=== PATIENT | female | born 1980 | race Caucasian/White ===

== ENCOUNTER 2017-01-12 19:49 | Emergency (ER) | payer MEDICAID ==
[~2017-01-12] VITALS: Ht 162.6 cm; Wt 107.0 kg
[~2017-01-12 19:49] MED LIST: ACET-62 PO; BUSP7.5T7 PO; GLYB1.253 PO; HYDR25TA85 PO; IBUP-1724 PO; LIRA0.6P SQ; LISI1TAB13 PO; TRAM50TA4 PO
[2017-01-12 19:52] VITALS: Ht 162.6 cm; Wt 107.0 kg
--- OUTSIDE RECORDS SUMMARY | 2017-01-12 19:53 | XMS REPORT ---
Author Author [employer], [facility] Organization Unknown Address Unknown Phone Unavailable Care Team Providers Care Workforce Consultant Name Role Phone MD JOSHUA, MERNA PP [phone] Reason For Visit Chief Complaint TOOTHACHE Social History Functional Status Vital Signs Results Problems Encounter Diagnosis No relevant problems exist. Encounters Encounter Diagnosis No relevant problems exist. Plan of Care Procedures No relevant procedures performed. Immunizations No immunizations administered or ordered. Hospital Course Hospital Discharge Instructions Allergies, Adverse Reactions, Alerts * Latex Allergy has not been assessed. * IV Contrast Allergy has not been assessed. Medication Medication reconciliation has not been performed.
--- OUTSIDE RECORDS SUMMARY | 2017-01-12 19:53 | XMS REPORT | Continuity of Care Document ---
Author Author [facility] Organization [facility] Address Unknown Phone Unavailable Support Name Relationship Address Phone EUSEBIA FARMER APRN Caregiver [address] [place] [id number] Unavailable JOSE ANAYA MD Caregiver [address] [place] [address] [place] [address] Unavailable KIERSTEN SALAS Next Of Kin [address] [place] [address] Insurance Providers Guarantor Bertin Salas Address [address] [place], [place] [id number] Email DENIED/NO PORTAL Payer [facility] Community Plan Policy Number [id number] Subscriber's Name Bertin Salas Relationship 18 Self Effective Date 16 Expiration Date 16 Advance Directives Directive Response Recorded Date/Time Advanced Directives Type None 09/03/16 12:59pm Chief Complaint and Reason for Visit Chief Complaint Upper Extremity Injury Reason for Visit [id number] Problems Past Problems Medical Problem Onset Date Back contusion Unknown Fall (on) (from) other stairs and steps, initial encounter Unknown Fracture of multiple toes Unknown Sprain of wrist, right Unknown Medications Current Home Medications Medication Dose Units Route Directions Days Qty Instructions Start Date Acetaminophen 500 Mg Tablet 1,000 Mg Oral Every 8 Hours as needed for Pain 09/03/16 Buspirone Hcl 7.5 Mg Tablet 7.5 Mg Oral Daily 09/03/16 Glyburide 1.25 Mg Tablet 1.25 Mg Oral Daily 09/03/16 Hydroxyzine Hcl 25 Mg Tablet 25 Mg Oral Three Times A Day as needed for Anxiety 09/03/16 Ibuprofen 200 Mg Tablet 800 Mg Oral Every 8 Hours as needed for Pain 04/16/16 Liraglutide (Victoza 2-Toñito) 18 Mg/Syringe Inj 1.2 Mg Sub-Q Daily 09/03/16 Lisinopril/Hydrochlorothiazide (Lisinopril-Hctz 20-25 Mg Tab) 1 Each Tablet 1 Tab Oral Daily 09/03/16 Tramadol Hcl 50 Mg Tablet 50 Mg Oral Q6h/0300,0900,1500,2100 8 Tablet Take 1 tablet, by mouth, every 6 hours. 09/03/16 Social History Social History Problem Response Recorded Date/Time Onset Date Status Hx Alcohol Use No 09/03/2016 1:37pm Not Applicable Not Applicable Query Response Start Date Stop Date Smoking Status Current every day smoker Hospital Discharge Instructions No hospital discharge instructions. Plan of Care Discharge Date 09/03/16 2:03pm Disposition 01 DISCHARGED HOME, SELF-CARE Condition at Discharge Stable Instructions/Education Provided DI for Wrist Sprain Prescriptions See Medication Section Referrals EUSEBIA FARMER APRN Address: [address] [place] [address] [phone] Additional Instructions/Education Continue to ice and elevate the wrist as well as use Ibuprofen and/or Tylenol as needed for pain. May wear the wrist splint as needed for comfort, remove and use the wrist once able. If not improving at all then follow up with PCP in the next 2 weeks. Care Plan and Goals Physician Care Plan Problem:Right wrist pain Goal: Follow up with primary care provider Instructions: Take medications and follow care plan as discussed/written Functional Status No functional status results. Allergies, Adverse Reactions, Alerts Allergen Type Severity Reaction Status Last Updated NKDA Allergy Mild Active 09/03/16 Immunizations Query Response on File Recorded Date/Time Influenza Vaccine Hx NONE 09/03/16 1:37pm Vital Signs Acute Vital Signs Vital Response Date/Time Temperature (Fahrenheit) 98.4 deg F (96.8 - 99.1) 09/03/2016 2:03pm Temperature (Calculated Celsius) 36.21468 degrees C (36.0 - 37.3) 09/03/2016 2:03pm Pulse Rate (adult) 86 bpm (60 - 100) 09/03/2016 2:03pm Respiratory Rate 20 breaths/min (10 - 20) 09/03/2016 2:03pm O2 Sat by Pulse Oximetry 95 % (90 - 100) 09/03/2016 2:03pm Blood Pressure 132/63 mm Hg 09/03/2016 2:03pm Height (Feet) 5 feet 09/03/2016 12:59pm Height (Inches) 4.00 inches 09/03/2016 12:59pm Weight (Kilograms) 114.000 kg 09/03/2016 12:59pm Body Mass Index (BMI) 43.0 09/03/2016 12:59pm Results Name: BERTIN SALAS Unit #: [id number] : 1980 Sex: F Admit Date: Loc / Svc: ED Discharge Date: DIAGNOSTIC IMAGING REPORT [id number].REASON: fall with wrist pain PROCEDURE: WRIST RIGHT 3-4 VIEWS: Encounter: Initial Comparison: None Findings: There is a 3 mm linear calcific density adjacent to the ulnar base of the small finger proximal phalanx seen on the oblique view. No additional area concerning for acute fracture. Carpal bones are normally aligned. Impression: Age-indeterminate small avulsion fracture from the base of the small finger proximal phalanx. Recommend clinical correlation for focal tenderness. . Procedures No known history of procedures. Encounters Encounter Location Arrival/Admit Date Discharge/Depart Date Attending Provider Departed Emergency Room [facility] 09/03/16 12:56pm 09/03/16 2: 03pm JOSE ANAYA MD Recent Diagnosis
--- OUTSIDE RECORDS SUMMARY | 2017-01-12 19:59 | XMS REPORT ---
Author Author [facility], SYSTEM Organization Unknown Address Unknown Phone Unavailable Care Team Providers Care Technical Adjuster Name Role Phone MD JOSHUA, MERNA PP [phone] Reason For Visit Chief Complaint TOOTHACHE Social [...]
[2017-01-12] MEDS ORDERED: SULF1TAB42 PO (20:09)
[2017-01-12] MEDS ORDERED: LISI-621 PO (20:09)
--- NOTE | 2017-01-12 20:15 | ERPDOC ---
Departure Disposition Decision Date: Jan 12, 2017 Disposition Decision Time: 20:15 Disposition: 01 DISCHARGED HOME, SELF-CARE Impression Impression Impression: Primary Impression: Abscess Severity: Moderate Condition: Stable Seen By: Mid-level only Referrals: EUSEBIA FARMER APRN (Family) Patient Instructions: Abscess (ED) Problems/Meds/Labs Reviewed?: Yes Medications reviewed and manag: Yes Additional Instructions: Start on the Clindamycin as prescribed. I do want you to monitor for increasing redness, swelling, or erythema. Follow up with your primary care provider for reevaluation in 48 hours if this is not improving. Follow up care ordered?: Yes Mental Status: Alert, Oriented Scripts Clindamycin HCl (Clindamycin HCl) 150 Mg Capsule 2 CAP PO TID, #60 CAP 0 Refills TAKE WITH A FULL GLASS OF WATER TO AVOID ESOPHAGEAL IRRITATION. Prov: REYNOLD BEVERLY WEST 01/12/17 HPI - Skin General General Chief Complaint: Skin Rash/Abscess Stated Complaint: SHOULDER INFECTION Time Seen by Provider: 19:56 Source: patient Exam Limitations: no limitations HPI - Skin General Initial Comments She presents to Er today for evaluation of some sores on the right side of her shoulder. She also has one on the right distal wrist. Her boyfriend was recently diagnosed with an abscess and was started on Clindamycin. He had been on Bactrim and it was not responding to this so was switched to Clinda. She denies any fever or chills. Has been taking Bactrim for the last few days without response. Occurred At: home Onset: Gradual Duration: other (Over the last 2 days) Severity: moderate Location: extremities (over the right shoulder and the left distal wrist) Possible Cause: no cause identified Associated Symptoms: DENIES: blisters, change in skin texture, edema, fever, flushing, headache, hives, jaundice, malaise, nasal congestion, numbness, pallor , paresthesia, petechiae, rash, sore throat, swelling/mass/lumps, tingling Hx of Similar Symptoms: No Allergies: Coded Allergies: NKDA (Unverified Allergy, Mild, 01/12/17) Past History Past Medical History ENMT: sore throats Respiratory: pneumonia Surgical History Denies Surgeries Reproductive/: Family History Family PMH: FOUND: other Review of Systems Constitutional Constitutional: DENIES: chills, dizziness, fatigue, fever, weakness Cardiovascular Cardiac: DENIES: chest pain, orthopnea Rhythm/Rate: DENIES: irregular beat, palpitations Pulmonary Respiratory: DENIES: cough, dyspnea, sputum GI Upper Abdomen: DENIES: nausea, pain, vomiting Lower Abdomen: DENIES: constipation, diarrhea, pain Integumentary Skin: DENIES: rash Neurological General: DENIES: headache, numbness, tingling, weakness Physical Exam General General Nourishment: well nourished, well developed, appears stated age, no acute distress, adult General Body Habitus: well groomed Vitals and Pain First Documented Vital Signs Date Time Temp Pulse Resp B/P Pulse Ox O2 Delivery O2 Flow Rate FiO2 01/12/17 19:52 97.9 107 141/81 98 Room Air Weight: Kilograms: 107.000 Height (feet): 5 Height (inches): 4.00 Triage Pain Scale: RN VS reviewed by Provider: Yes Normal Exams: Lymphatic: No lymphadenopathy, or lymphedema noted Musculoskeletal: No tenderness, or deformity noted, good range of motion, all extremities Neurologic: Patient is alert, and oriented Psychiatric: Patient exhibits, appropriate attention, emotion and affect Integumentary (brief) Integumentary Brief: FOUND: lesions (She has three small scabbed lesion on the right shoulder with surrounding erythema and induration. There is no fluctuance or pointing noted. She does also have one area on the left distal wrist that appears the same. ) Differential Diagnoses Considering: Abscess, Bite, Cellulitis Progress Results/Orders Orders Procedure Category Date Status Time Clindamycin (Cleocin) PHA 01/12/17 Complete 20:30 Tramadol (Prepack) PHA 01/12/17 Complete (Ultram (Prepack)) 20:45 Medications Current ED Medications Clindamycin HCl (Cleocin) 300 mg O ONCE PO Last administered on 01/12/17 20: 31; Start 01/12/17 at 20:30; Stop 01/12/17 at 20:31; Status DC Tramadol HCl (ULTRAM (PrePack)) 1 pack O ONCE SENT HOME Last administered on 20:35; Start 01/12/17 at 20:45; Stop 01/12/17 at 20:46; Status DC Progress Progress Will have her start on Clindamycin today as well. Have her return to ER if not improving. REYNOLD BEVERLY APRN Jan 12, 2017 20:15
[2017-01-12] MEDS ORDERED: CLIN-89 PO ×2 (20:17→20:21)
[2017-01-12] MEDS ORDERED: CLINDAMYCIN 300 MG CAPSULE PO ONE (20:30)
[2017-01-12 20:36] VITALS: BP 141/81; PULSE 107; TEMP 97.9; O2SAT 98
[2017-01-12] MEDS ORDERED: TRAMADOL 50mg TAB #6 (PrePack) SENT HOME ONE (20:45)
== END 2017-01-12 20:36 | disposition home or self-care (01) ==
LOC: ED 19:49
DX: L02.413 Cutaneous abscess of right upper limb (principal); L02.414 Cutaneous abscess of left upper limb

== ENCOUNTER 2017-01-13 03:34 | Emergency (ER) | payer MEDICAID ==
[~2017-01-13] VITALS: Ht 162.6 cm; Wt 107.0 kg
[~2017-01-13 03:34] MED LIST changes: +CLIN-89 PO; +LISI-621 PO; +SULF1TAB42 PO
--- OUTSIDE RECORDS SUMMARY | 2017-01-13 03:38 | XMS REPORT | Continuity of Care Document ---
Author Author [facility] Organization [facility] Address Unknown Phone Unavailable Support Name Relationship Address Phone DEANNA UMANZOR MD Caregiver [address] [place] [address] Unavailable EUSEBIA FARMER APRN Caregiver [address] [place] [address] Unavailable JEAN-PIERRE OLIVEIRA Next Of Kin [address] [place] [address] Insurance Providers Guarantor Bertin Salas Address [address] [place] [address] Email DENIED 17 Payer [facility] Community Plan Policy Number [id number] Subscriber's Name Bertin Salas Relationship 18 Self Effective Date 16 Expiration Date 17 Chief Complaint and Reason for Visit Chief Complaint Skin Rash/Abscess Reason for Visit Abscess Problems Past Problems Medical Problem Onset Date Abscess Unknown Back contusion Unknown Fall (on) (from) other stairs and steps, initial encounter Unknown Fracture of multiple toes Unknown Sprain of wrist, right Unknown Medications Current Home Medications Medication Dose Units Route Directions Days Qty Instructions Start Date Acetaminophen 500 Mg Tablet 1,000 Mg Oral Every 8 Hours as needed for Pain 09/03/16 Clindamycin Hcl 150 Mg Capsule 2 Cap Oral Three Times A Day 60 Capsule TAKE WITH A FULL GLASS OF WATER TO AVOID ESOPHAGEAL IRRITATION. 01/12/17 Glyburide 1.25 Mg Tablet 1.25 Mg Oral Daily 09/03/16 Ibuprofen 200 Mg Tablet 800 Mg Oral Every 8 Hours as needed for Pain 04/16/16 Liraglutide (Victoza 2-Toñito) 18 Mg/Syringe Inj 1.2 Mg Sub-Q Daily 09/03/16 Lisinopril 20 Mg Tablet 20 Mg Oral Daily for Hypertension Sulfamethoxazole/Trimethoprim (Bactrim Ds Tablet) 1 Each Tablet 2 Tab Oral Twice A Day Take 1 tablet, by mouth, 2 times a day. 01/12/17 Social History Social History Problem Response Recorded Date/Time Onset Date Status Chewing Tobacco Status No 01/12/2017 7:59pm Not Applicable Not Applicable Hx Substance Use No 01/12/2017 7:59pm Not Applicable Not Applicable Hx Alcohol Use No 01/12/2017 7:59pm Not Applicable Not Applicable Query Response Start Date Stop Date Smoking Status Current every day smoker Hospital Discharge Instructions No hospital discharge instructions. Plan of Care Discharge Date 01/12/17 8:36pm Disposition 01 DISCHARGED HOME, SELF-CARE Condition at Discharge Stable Instructions/Education Provided Abscess (ED) Prescriptions See Medication Section Referrals EUSEBIA FARMER APRN Address: [address] [place] [phone] Additional Instructions/Education Start on the Clindamycin as prescribed. I do want you to monitor for increasing redness, swelling, or erythema. Follow up with your primary care provider for reevaluation in 48 hours if this is not improving. Care Plan and Goals Physician Care Plan Problem:Skin infection Goal: Follow up with primary care provider Instructions: Take medications and follow care plan as discussed/written Functional Status No functional status results. Allergies, Adverse Reactions, Alerts Allergen Type Severity Reaction Status Last Updated NKDA Allergy Mild Active 01/12/17 Immunizations Query Response on File Recorded Date/Time Influenza Vaccine Hx NONE 01/12/17 7:59pm Vital Signs Acute Vital Signs Vital Response Date/Time Temperature (Fahrenheit) 97.9 deg F (96.8 - 99.1) 01/12/2017 8:36pm Temperature (Calculated Celsius) 36.78740 degrees C (36.0 - 37.3) 01/12/2017 8:36pm Pulse Rate (adult) 107 bpm (60 - 100) 01/12/2017 8:36pm O2 Sat by Pulse Oximetry 98 % (90 - 100) 01/12/2017 8:36pm Blood Pressure 141/81 mm Hg 01/12/2017 8:36pm Height (Feet) 5 feet 01/12/2017 7:52pm Height (Inches) 4.00 inches 01/12/2017 7:52pm Weight (Kilograms) 107.000 kg 01/12/2017 7:52pm Body Mass Index (BMI) 40.0 01/12/2017 7:52pm Results No known relevant diagnostic tests, laboratory data and/or discharge summary. Procedures No known history of procedures. Encounters Encounter Location Arrival/Admit Date Discharge/Depart Date Attending Provider Departed Emergency Room [facility] 01/12/17 7:49pm 01/12/17 8: 36pm DEANNA UMANZOR MD Recent Diagnosis
--- OUTSIDE RECORDS SUMMARY | 2017-01-13 03:38 | XMS REPORT ---
Author Author GENERATED, SYSTEM Organization Unknown Address Unknown Phone Unavailable Care Team Providers Care Admissions Representative Name Role Phone MD JOSHUA, MERNA PP [phone] Reason For Visit Chief Complaint TOOTHACHE Social [...]
[2017-01-13 03:39] VITALS: Ht 162.6 cm; Wt 107.0 kg
--- OUTSIDE RECORDS SUMMARY | 2017-01-13 03:57 | XMS REPORT ---
Author Author [facility], SYSTEM Organization Unknown Address Unknown Phone Unavailable Care Team Providers Care Medical Sales Consultant Name Role Phone MD JOSHUA, MERNA PP [phone] Reason For Visit Chief Complaint TOOTHACHE Social [...]
--- NOTE | 2017-01-13 03:58 | ERPDOC ---
Departure Disposition Decision Date: January 13, 2017 Disposition Decision Time: 04:07 Disposition: 01 DISCHARGED HOME, SELF-CARE Impression Impression Impression: Primary Impression: Cellulitis Additional Impression: Abscess Severity: Moderate Condition: Stable Seen By: Physician only Referrals: EUSEBIA FARMER APRN (Family) Patient Instructions: Cellulitis (ED) Problems/Meds/Labs Reviewed?: Yes Medications reviewed and manag: Yes Additional Instructions: Please see her primary care provider for follow-up and possible drainage of abscess if needed. Follow up care ordered?: Yes Mental Status: Alert, Oriented HPI - General Medical General Chief Complaint: General Stated Complaint: SORE ON SHOULDER Time Seen by Provider: 03:35 HPI - General Medical Initial Comments 36-year-old female returns approximately 6 hours after having been seen earlier on shift. She has a history of MRSA infection, as does her boyfriend. She has several small areas on the right shoulder which are infected, was started on clindamycin and given tramadol for pain. She expressed to the nurses that she is unhappy that she was only given tramadol not something stronger. To me she expresses that she thinks the infection is getting worse and it is hurting more. No fever. Patient is complaining of sore throat and ear pain. She states that has been coming on for a couple of days. She is a smoker and does have a fresh cup of coffee from the lobby with her. Allergies: Coded Allergies: NKDA (Unverified Allergy, Mild, 01/12/17) Past History Past Medical History ENMT: sore throats Respiratory: pneumonia Surgical History Denies Surgeries Reproductive/: Family History Family PMH: FOUND: other Review of Systems ENMT Mouth/Throat: see HPI Integumentary Skin: see HPI All other Systems All Other Systems: Reviewed and Negative Physical Exam General General Nourishment: well nourished, well developed, appears stated age, no acute distress Vitals and Pain First Documented Vital Signs Date Time Temp Pulse Resp B/P Pulse Ox O2 Delivery O2 Flow Rate FiO2 01/13/17 03:39 99.0 87 18 138/75 96 Room Air Weight: Kilograms: 107.000 Height (feet): 5 Height (inches): 4.00 Triage Pain Scale: Normal Exams: Head: Normocephalic w/o trauma Chest/Resp: Clear all flores, with good airflow, and symmetry bilaterally CV: Regular rate and rhythm, without murmur or gallop, Pulses 2+ all extremities, capillary refill, <2 seconds all ext., no pedal edema noted Abdomen: Bowel sounds positive, soft, non-tender, non-distended, no hepatosplenomegaly, masses or bruits noted Neurologic: Patient is alert, and oriented, cranial nerves, motor/sensory/ cerebellar, exams w/o gross deficits, to observation Psychiatric: Patient exhibits, appropriate attention, emotion and affect ENMT (brief) Comments TMs pearly white bilateral, throat is slightly red posterior, no postnasal drainage, no exudates noted. Neck (brief) Neck: NOT FOUND: adenopathy, thyromegaly Lymphatic (brief) Comments No lymph nodes palpable in the axilla. Differential Diagnoses Considering: Other Progress Results/Orders Orders Procedure Category Date Status Time Ketorolac (Toradol) PHA 01/13/17 Transmitted 04:00 Progress Progress Areas of cellulitis on right arm do have some induration beneath. Patient refuses to allow it me to drain them, stating that they drain on their own sometimes. I tried to explain the use of placing a small wick to allow the wound to continue to drain, but she is not interested. I did give her Toradol 60 mg IM, she already has Ultram from earlier tonight. Recommend she see her primary care provider in the morning if needed, however she needs to give 24 hours for the antibiotics to show any effect. As patient was getting ready to leave, she stated that she had not even tried the Ultram because she knew that would not work and that she needed something stronger for pain. I recommended she speak with her primary care provider. DEANNA UMANZOR MD January 13, 2017 03:58
[2017-01-13] MEDS ORDERED: KETOROLAC 60mg/2ml INJECTION IM ONE (04:00)
[2017-01-13 04:12] VITALS: BP 138/75; PULSE 87; RESP 18; TEMP 99; O2SAT 96
--- NOTE | 2017-01-13 04:12 | NUR ---
DEPART PT GIVEN DI FOR CELLULITIS. VERBALIZES UNDERSTANDING. QUESTIONS ASKED/ANSWERED. DENIES FURTHER QUESTIONS/NEEDS AT THIS TIME. AMBULATED/ESCORTED TO ED EXIT - GAIT STABLE. NO SIGN OF DISTRESS AT THIS TIME.
== END 2017-01-13 04:12 | disposition home or self-care (01) ==
LOC: ED 03:34
DX: L02.413 Cutaneous abscess of right upper limb (principal); L03.113 Cellulitis of right upper limb; J02.9 Acute pharyngitis, unspecified; Z86.14 Personal history of Methicillin resistant Staphylococcus aureus infection
CPT/HCPCS: 96372; 99283; J1885